=== PATIENT | female | born 1990 | race Caucasian/White ===

== ENCOUNTER 2017-06-22 14:06 | Emergency (ER) | payer MEDICAID ==
[2017-06-22 14:20] VITALS: BP 138/87
== END 2017-06-22 15:52 | disposition home or self-care (01) ==
LOC: ED 14:06
DX: T49.8X1A Poisoning by other topical agents, accidental (unintentional), initial encounter (principal); L24.3 Irritant contact dermatitis due to cosmetics; Y92.89 Other specified places as the place of occurrence of the external cause

== ENCOUNTER 2017-12-19 17:34 | Emergency (ER) | payer OTHER ==
[~2017-12-19] VITALS: Ht 162.6 cm; Wt 71.2 kg
[2017-12-19 17:37] VITALS: BP 124/77; Ht 162.6 cm; Wt 71.2 kg
[2017-12-19 18:03] LABS: BASOPHIL % 0.6 % (0-2); PLATELET COUNT 243 x10^3mcL (130-400); RED CELL DISTRIBUTION WIDTH 13.4 % (11.5-14.5)
[2017-12-19 18:09] LABS: CALCIUM 8.4 mg/dL (8.5-10.1); CARBON DIOXIDE 26.8 mmol/L (21-32); CHLORIDE SERUM 103 mmol/L (98-107); CREATININE SERUM 0.7 mg/dL (0.6-1.0); GFR1 > 60 mL/min; GLUCOSE SERUM 97 mg/dL (74-106); POTASSIUM SERUM 3.2 mmol/L (3.5-5.1); SODIUM SERUM 138 mmol/L (136-145)
== END 2017-12-19 18:47 | disposition home or self-care (01) ==
LOC: ED 17:34
PROVIDERS: Emergency Medicine
DX: O20.0 Threatened abortion (principal); Z3A.00 Weeks of gestation of pregnancy not specified
CPT/HCPCS: 36415

== ENCOUNTER 2017-12-22 19:58 | Inpatient (IN) | payer OTHER ==
[~2017-12-22] VITALS: Ht 172.7 cm; Wt 71.9 kg
[2017-12-22 21:22] LABS: BASOPHIL % 0.4 % (0-2); PLATELET COUNT 217 x10^3mcL (130-400)
[2017-12-22 23:35] VITALS: BP 120/73
[2017-12-22 23:38] VITALS: Ht 172.7 cm; Wt 71.9 kg
[2017-12-23 01:58] LABS: UA SPECIFIC GRAVITY 1.015 (1.005-1.035); microscopic required? YES; urine erythrocyte 1+ (NEGATIVE)
[2017-12-23 02:02] LABS: CALCIUM 9.2 mg/dL (8.5-10.1); CARBON DIOXIDE 24.1 mmol/L (21-32); CHLORIDE SERUM 107 mmol/L (98-107); CREATININE SERUM 0.6 mg/dL (0.6-1.0); GFR1 > 60 mL/min; GLUCOSE SERUM 89 mg/dL (74-106); POTASSIUM SERUM 3.6 mmol/L (3.5-5.1); SODIUM SERUM 142 mmol/L (136-145)
[2017-12-23 02:13] LABS: T3 TOTAL 1.32 ng/mL
[2017-12-23 02:17] LABS: FREE T4 1.11 ng/dL (0.76-1.46); FREE THYROXINE INDEX 2.6 ug/dL (1.4-4.5); T4(THYROXINE) 8.4 ug/dL (4.7-13.3)
[2017-12-23 02:19] LABS: CHOLESTEROL/HDL RATIO 3.5; MAGNESIUM 1.9 mg/dL (1.8-2.4); PHOSPHOROUS 3.7 mg/dL (2.5-4.9)
[2017-12-23 02:20] LABS: AMPHETAMINE QUAL UR NONE DETECTED (NEG <=1000)
[2017-12-23 05:56] VITALS: BP 94/47
[2017-12-23 08:08] VITALS: BP 91/47
[2017-12-23 10:42] VITALS: BP 95/52
[2017-12-23 12:47] VITALS: BP 100/50
[2017-12-23 17:26] VITALS: BP 94/52
[2017-12-23 20:47] VITALS: BP 100/55
[2017-12-24 06:10] VITALS: BP 98/43
[2017-12-24 06:43] LABS: CALCIUM 7.7 mg/dL (8.5-10.1); CARBON DIOXIDE 23.2 mmol/L (21-32); CHLORIDE SERUM 108 mmol/L (98-107); CREATININE SERUM 0.6 mg/dL (0.6-1.0); GFR1 > 60 mL/min; GLUCOSE SERUM 78 mg/dL (74-106); MAGNESIUM 1.8 mg/dL (1.8-2.4); PHOSPHOROUS 2.5 mg/dL (2.5-4.9); POTASSIUM SERUM 3.4 mmol/L (3.5-5.1); SODIUM SERUM 142 mmol/L (136-145)
[2017-12-24 06:53] LABS: BASOPHIL % 0.3 % (0-2); PLATELET COUNT 188 x10^3mcL (130-400)
[2017-12-24] MEDS ORDERED: KEFLEX500 M1 PO (08:35)
[2017-12-24] MEDS ORDERED: LAC PO (08:48)
[2017-12-24] MEDS ORDERED: PHARMASSURE FO0.4 MG PO (08:54)
[2017-12-24] MEDS ORDERED: FERROUS SULFAT325 M2 PO (08:54)
[2017-12-24] MEDS ORDERED: VITAMIN C PURE500 MG PO (08:56)
[2017-12-24 09:44] VITALS: BP 99/52
[2017-12-24 09:53] VITALS: BP 99/52
[2017-12-24 14:02] VITALS: BP 124/58
== END 2017-12-24 14:30 | disposition home or self-care (01) | DRG 566 ==
LOC: ED 19:58 → DU 22:47
PROVIDERS: Emergency Medicine; Family Medicine Sports Medicine
DX: O00.90 Unspecified ectopic pregnancy without intrauterine pregnancy (principal); E83.51 Hypocalcemia; N39.0 Urinary tract infection, site not specified; E87.6 Hypokalemia; D64.9 Anemia, unspecified
CPT/HCPCS: 83880; 84439; J0696; J2405; J2543; J3490; J7030; J7040

== ENCOUNTER 2018-01-06 10:09 | Emergency (ER) | payer OTHER ==
[~2018-01-06] VITALS: Ht 160 cm; Wt 71.2 kg
[~2018-01-06 10:09] MED LIST: FERROUS SULFAT325 M2 PO; KEFLEX500 M1 PO; LAC PO; PHARMASSURE FO0.4 MG PO; VITAMIN C PURE500 MG PO
[2018-01-06 10:26] VITALS: BP 117/76; Ht 160 cm; Wt 71.2 kg
== END 2018-01-06 12:15 | disposition home or self-care (01) ==
LOC: ED 10:09
DX: H60.92 Unspecified otitis externa, left ear (principal)

== ENCOUNTER 2018-01-10 15:40 | Emergency (ER) | payer OTHER ==
[~2018-01-10] VITALS: Ht 160 cm; Wt 70.3 kg
[2018-01-10 15:47] VITALS: BP 118/77; Ht 160 cm; Wt 70.3 kg
== END 2018-01-10 18:20 | disposition left against medical advice (07) ==
LOC: ED 15:40
DX: Z53.21 Procedure and treatment not carried out due to patient leaving prior to being seen by health care provider (principal)

== ENCOUNTER 2018-04-12 09:17 | Emergency (ER) | payer OTHER ==
[~2018-04-12] VITALS: Ht 160 cm; Wt 68.1 kg
[2018-04-12 09:51] VITALS: Ht 160 cm; Wt 68.1 kg
[2018-04-12 10:41] LABS: BASOPHIL % 0.3 % (0-2); PLATELET COUNT 173 x10^3mcL (130-400); RED CELL DISTRIBUTION WIDTH 14.3 % (11.5-14.5)
[2018-04-12 11:33] LABS: microscopic required? YES; urine erythrocyte TRACE (NEGATIVE)
[2018-04-12 12:49] VITALS: BP 115/78
== END 2018-04-12 12:49 | disposition home or self-care (01) ==
LOC: ED 09:17
PROVIDERS: Emergency Medicine
DX: O23.41 Unspecified infection of urinary tract in pregnancy, first trimester (principal); Z3A.01 Less than 8 weeks gestation of pregnancy; Z87.59 Personal history of other complications of pregnancy, childbirth and the puerperium
CPT/HCPCS: 36415; J0696; J8597

== ENCOUNTER 2020-08-26 18:25 | Emergency (ER) | payer OTHER, SELFPAY ==
[~2020-08-26] VITALS: Ht 160 cm; Wt 72.6 kg
[2020-08-26 18:27] VITALS: BP 114/70; Ht 160 cm; Wt 72.6 kg
== END 2020-08-26 19:39 | disposition home or self-care (01) ==
LOC: ED 18:25
DX: J20.8 Acute bronchitis due to other specified organisms (principal); H92.09 Otalgia, unspecified ear; Z20.828 Contact with and (suspected) exposure to other viral communicable diseases
CPT/HCPCS: U0003-CS